=== PATIENT | female | born 1965 | race American Indian/Alaskan Native ===

== ENCOUNTER 2016-05-18 08:25 | Outpatient (CLI) | payer OTHER ==
--- NOTE | 2016-05-19 10:11 | Mammography Report ---
BILATERAL DIGITAL SCREENING MAMMOGRAM with CAD : 05/18/16 08:25:00 CLINICAL: Routine screening. COMPARISON:10/22/14 FINDINGS: The breasts are heterogeneously dense, which may obscure small masses. No mass, architectural distortion or suspicious calcifications. IMPRESSION: No mammographic evidence of malignancy. BI-RADS CATEGORY: 2 -- Benign RECOMMENDATION: Routine mammographic screening in one year. COMMENT: Patient follow-up letters are generated by our [employer] application.
== END 2016-05-18 08:26 | disposition home or self-care (01) ==
LOC: SPVWC 08:25
PROVIDERS: ATTEND General Practice
DX: Z12.31 Encounter for screening mammogram for malignant neoplasm of breast (principal)
CPT/HCPCS: 77067; G0202

== ENCOUNTER 2017-11-13 12:47 | Outpatient (CLI) | payer OTHER ==
--- NOTE | 2017-11-14 11:04 | Mammography Report ---
BILATERAL DIGITAL SCREENING MAMMOGRAM with CAD: 11/13/17 12:47:00 CLINICAL: Routine screening. COMPARISON:05/08/16 and 07/23/14 FINDINGS: The breasts are heterogeneously dense, which may obscure small masses. No mass, architectural distortion or suspicious calcifications. IMPRESSION: No mammographic evidence of malignancy. BI-RADS CATEGORY: 1 - - Negative RECOMMENDATION: Routine mammographic screening in one year. COMMENT: Patient follow-up letters are generated by our [employer] application.
== END 2017-11-13 12:48 | disposition home or self-care (01) ==
LOC: SPVWC 12:47
PROVIDERS: ATTEND General Practice
DX: Z12.31 Encounter for screening mammogram for malignant neoplasm of breast (principal)
CPT/HCPCS: 77067

== ENCOUNTER 2017-11-23 08:30 | Outpatient (CLI) | payer OTHER ==
--- NOTE | 2017-11-23 13:02 | Ultrasound Report ---
TRANSABDOMINAL AND TRANSVAGINAL PELVIC ULTRASOUND: 11/23/17 08:30:00 CLINICAL: Dysfunctional uterine bleeding. FINDINGS: Transabdominal and transvaginal pelvic ultrasound demonstrated a minimally enlarged fibroid uterus measuring 10.2 x 6.6 x 7.8 cm. And anterior intramural fundal fibroid to the right of midline measures 2.2 x 2.1 x 2.4 cm. A posterior lower uterine segment intramural fibroid to the left of midline measures 2.4 x 2.1 x 2.3 cm.The endometrium is normal and measures 6.8 AP thickness. Ovaries are not identified. No adnexal mass. No free fluid. Normal urinary bladder. IMPRESSION: A minimally enlarged fibroid uterus. Normal endometrium. Ovaries not imaged.
== END 2017-11-23 08:31 | disposition home or self-care (01) ==
LOC: SPVWC 08:30
PROVIDERS: ATTEND Hospitalist
DX: D25.1 Intramural leiomyoma of uterus (principal)
CPT/HCPCS: 76830; 76856